=== PATIENT | female | born 1995 | race Caucasian/White ===

== ENCOUNTER → 2017-01-27 | Outpatient (CLI) | payer OTHER ==
--- NOTE | 2017-01-27 13:55 | DIAGNOSTIC IMAGING REPORT ---
LEFT KNEE 4 VIEWS HISTORY: LEFT KNEE PAIN COMPARISON: None. FINDINGS: There is no fracture or dislocation. Soft tissues are unremarkable. No knee effusion. Cartilage spaces are maintained. There is an 8.1 x 1.2 cm mixed lucent and sclerotic osseous lesion within the distal shaft of the left femur. This demonstrates a posterior lateral location. 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 No periosteal reaction or bony destruction. IMPRESSION: 1. No acute fracture dislocation within the left knee. 2. An 8.1 x 1.2 cm benign-appearing lesion within the distal shaft of left femur. This favors a nonossifying fibroma. Electronically signed by: Felix Heath M.D. 01/27/2017 1:54 PM Dictated Date/Time: 01/27/2017 1:52 PM
== END | disposition home or self-care (01) ==
LOC: C.RDSM 13:52
PROVIDERS: ATTEND Family Medicine
DX: M25.562 Pain in left knee (principal); M89.9 Disorder of bone, unspecified